=== PATIENT | female | born 1975 | race Caucasian/White ===

== ENCOUNTER → 2020-08-23 | Outpatient (CLI) | payer BC, MEDICARE | LOC: COL.PUL 10:00 | DX: R06.02 Shortness of breath (principal); Z87.891 Personal history of nicotine dependence; Z77.22 Contact with and (suspected) exposure to environmental tobacco smoke (acute) (chronic) | CPT/HCPCS: J7674 ==

== ENCOUNTER → 2021-02-11 | Outpatient (CLI) | payer BC, MEDICARE | LOC: MC.RAD 14:00 | DX: N63.22 Unspecified lump in the left breast, upper inner quadrant (principal) ==

== ENCOUNTER → 2021-02-20 | Outpatient (CLI) | payer BC, MEDICARE | LOC: MC.RAD 08:29 | DX: N63.20 Unspecified lump in the left breast, unspecified quadrant (principal); Z98.82 Breast implant status ==